=== PATIENT | female | born 1995 | race American Indian/Alaskan Native ===

== ENCOUNTER 2017-05-15 09:12 | Day surgery (SDC) | payer OTHER ==
--- NOTE | 2017-05-15 09:58 | Anesthesia Consultation ---
Anesthesia Consult and Med Hx Date of service: 05/15/17 - Airway Anesthetic Teeth Evaluation: Good ROM Head & Neck: Adequate Mental/Hyoid Distance: Adequate Mallampati Class: Class II Intubation Access Assessment: Probably Good - Pulmonary Exam CTA: Yes - Cardiac Exam Cardiac Exam: RRR - Pre-Operative Health Status ASA Pre-Surgery Classification: ASA2 Proposed Anesthetic Plan: Local - Pulmonary Hx Asthma: No COPD: No Hx Pneumonia: No - Endocrine Hx End Stage Renal Disease: No - Other Systems Hx Cancer: No
--- NOTE | 2017-05-15 10:00 | Progress Note ---
Subjective Date of service: 05/15/17 Interval history: Patient had lumbar puncture on 05/09/17 to workup fatigue/weakness symptoms. headache began that night. Located in frontal region and relieved by laying flat consistant with post dural puncture headache. Will plan on epidural blood patch. Patient agrees to procedure.
--- NOTE | 2017-05-15 10:21 | Post Operative Note ---
Pre-op diagnosis: Post dural puncture headache Post-op diagnosis: same Findings: After consent obtained, patient brought to minor procedure room and placed on stretcher in sitting position. Low back prep with betadine and standard epidural sterile drape applied. L4-L5 interspace palpated easily and skin and subcutaneous tissue anesthetized with 2cc of lidocaine 1%. 18g touhy inserted into L4-L5 space and Epidural space identified using loss of resistance technique. 16cc of blood was then drawn from left antecubital vein and injected into epidural space via touhy needle. After 12cc of blood injected patient started experiencing lower back pressure. At that point she stated her headache was resolved. Touhy needle flushed with 1cc of saline and withdrawn. Procedure deemed complete and successful. Procedure: Lumbar epidural blood patch Anesthesia: local Surgeon: SAMANTHA CALDWELL Credit Administration Specialist: BRAULIO KINNEY Estimated blood loss: none Pathology: none Condition: stable Disposition: same day
[2017-05-15 10:46] VITALS: BP 94/55
== END 2017-05-15 11:00 | disposition home or self-care (01) ==
LOC: OR 09:12
PROVIDERS: ATTEND Anesthesiology Pain Medicine
DX: G97.1 Other reaction to spinal and lumbar puncture (principal)
CPT/HCPCS: 62273

== ENCOUNTER 2017-10-20 15:42 | Outpatient (CLI) | payer OTHER ==
--- NOTE | 2017-10-21 07:48 | Magnetic Resonance Report ---
MRI BRAIN WITH/WITHOUT CONTRAST: History: Visual changes. Technique: Multiple T1 and T2 weighted images were obtained in multiple planes. Axial diffusion and gradient imaging was performed. Post contrast T1 images in two planes were obtained following IV gadolinium. Findings: The brain parenchyma signal intensity and its hardy-white interface are normal on all sequences. No abnormal parenchymal signal. No diffusion restriction, hemorrhage, mass effect or extra-axial fluid collection. Ventricular size is normal and symmetric. The basal cisterns are clear. The brainstem and cerebellar hemispheres are within normal limits. The fourth ventricle is midline. The paranasal sinuses and mastoid air cells are well aerated. Normal flow voids are identified in the appropriate vessels at the [place]. No abnormal enhancement is identified following IV gadolinium. Impression: Unremarkable MRI brain with and without contrast.
--- NOTE | 2017-10-21 07:51 | Magnetic Resonance Report ---
MR CERVICAL SPINE WITH AND WITHOUT CONTRAST History: Severe myopathy, progressive weakness. Technique: Multisequence, multiplanar MRI before and after 12 cc of Multihance intravenously. Comparison: No relevant comparison at this facility. Findings: The cervical spinal cord, spinal canal, neural foramen, vertebral bodies, disc spaces, posterior elements, and paraspinal soft tissues are normal. No abnormal enhancement. Impression: Normal MRI of the cervical spine with and without contrast.
--- NOTE | 2017-10-21 07:53 | Magnetic Resonance Report ---
MR THORACIC SPINE WITH AND WITHOUT CONTRAST History: Severe myopathy, progressive weakness. Technique: Multisequence, multiplanar MRI before and after 12 cc of Multihance intravenously. Comparison: No relevant comparison at this facility. Findings: The thoracic spinal cord, spinal canal, neural foramen, vertebral bodies, disc spaces, posterior elements, and paraspinal soft tissues are normal. No abnormal enhancement. Impression: Normal MRI of the thoracic spine with and without contrast.
--- NOTE | 2017-10-21 07:55 | Magnetic Resonance Report ---
MR LUMBAR SPINE WITH AND WITHOUT CONTRAST History: Severe myopathy, progressive weakness. Technique: Multisequence, multiplanar MRI before and after 12 cc of Multihance intravenously. Comparison: No relevant comparison at this facility. Findings: The conus terminates at L1. No signal abnormality or mass. The spinal canal, neural foramen, vertebral bodies, disc spaces, posterior elements, and paraspinal soft tissues are normal. No abnormal enhancement. Impression: Normal MRI of the lumbar spine with and without contrast.
== END 2017-10-20 15:43 | disposition home or self-care (01) ==
LOC: MRI 15:42
PROVIDERS: ATTEND Internal Medicine Hematology & Oncology
DX: G72.9 Myopathy, unspecified (principal); H53.9 Unspecified visual disturbance; R49.0 Dysphonia
CPT/HCPCS: 70553; 72156; 72157; 72158; A9577